=== PATIENT | female | born 1980 | race Caucasian/White ===

== ENCOUNTER 2018-07-18 22:05 | Emergency (ER) | payer OTHER ==
[~2018-07-18] VITALS: Ht 162.6 cm; Wt 113.4 kg
[2018-07-18 23:03] LABS: BASO # 0.1 x10^3/uL (0.0-0.2); BASO % 1 % (0-3); EOS # 0.2 x10^3/uL (0.0-0.7); EOS % 2 % (0-3); HEMATOCRIT 38.9 % (36.0-47.0); HEMOGLOBIN 13.4 g/dL (12.0-15.5); LYMPH # 2.6 x10^3/uL (1.0-4.8); LYMPH % 29 % (24-48); MEAN CORPUSCULAR HEMOGLOBIN 30 pg (25-35); MEAN CORPUSCULAR HGB CONC 35 g/dL (31-37); MEAN CORPUSCULAR VOLUME 87 fL (79-100); MONO # 0.7 x10^3/uL (0.0-1.1); MONO % 7 % (0-9); NEUT # 5.7 x10^3uL (1.8-7.7); NEUT % 62 % (31-73); PLATELET COUNT 319 x10^3/uL (140-400); RED BLOOD COUNT 4.48 x10^6/uL (3.50-5.40); RED CELL DISTRIBUTION WIDTH 13.6 % (11.5-14.5); WHITE BLOOD COUNT 9.2 x10^3/uL (4.0-11.0)
[2018-07-18 23:04] LABS: CREATININE 0.9 mg/dL (0.6-1.0); GFR 70.8; POTASSIUM 3.8 mmol/L (3.5-5.1)
--- NOTE | 2018-07-18 23:04 | PHYS DOC ---
Past History Past Medical History: Depression, GERD, Other Past Surgical History: Cholecystectomy Smoking: Less than 1pk/day Alcohol Use: None Drug Use: None Adult General Chief Complaint Chief Complaint: FLANK PAIN HPI HPI 37-year-old female presents with sudden onset left-sided low back pain. The patient was walking across the kitchen and went to turn and sat down piece of toast when she felt "a pop" in the left lower side of her abdomen or back. She had immediate pain with radiculopathy down the lateral portion of her leg to the knee. The pain was 8 out of 10 and sharp. She was not immediately able to move due to pain. She was able to walk afterward. It continues to be quite painful and she wants to make sure it is nothing serious. The patient has been having some minor sciatic pain left side since May that is been managed by her PCP. She is supposed to go to physical therapy, but has not started yet. Her current pain is different than this pain. She denies loss of bowel or bladder. She denies history of back surgery or trauma. She denies fever, chills, dysuria , urinary frequency, hematuria. Review of Systems Review of Systems Constitutional: Denies fever or chills [] Eyes: Denies change in visual acuity, redness, or eye pain [] HENT: Denies nasal congestion or sore throat [] Respiratory: Denies cough or shortness of breath [] Cardiovascular: No additional information not addressed in HPI [] GI: Denies abdominal pain, nausea, vomiting, bloody stools or diarrhea [] : Denies dysuria or hematuria [] Musculoskeletal: Left-sided low back pain[] Integument: Denies rash or skin lesions [] Neurologic: Denies headache, focal weakness or sensory changes [] Endocrine: Denies polyuria or polydipsia [] All other systems were reviewed and found to be within normal limits, except as documented in this note. Current Medications Current Medications Current Medications Medications (Trade) Dose Ordered Sig/Luis Start Time Stop Time Status Last Admin Dose Admin Acetaminophen/ Hydrocodone Bitart (Lortab 5/325) 1 tab 1X ONCE 07/18/18 23:15 07/18/18 23:16 Orphenadrine Citrate (Norflex) 60 mg 1X ONCE 07/18/18 23:15 07/18/18 23:16 Prednisone (Prednisone) 50 mg 1X ONCE 07/18/18 23:15 07/18/18 23:16 Allergies Allergies Allergies Coded Allergies Type Severity Reaction Last Updated Verified No Known Drug Allergies 01/05/15 No Physical Exam Physical Exam Constitutional: Well developed, well nourished, no acute distress, non-toxic appearance. [] HENT: Normocephalic, atraumatic, bilateral external ears normal, oropharynx moist, no oral exudates, nose normal. [] Eyes: PERRLA, EOMI, conjunctiva normal, no discharge. [] Neck: Normal range of motion, no tenderness, supple, no stridor. [] Cardiovascular:Heart rate regular rhythm, no murmur [] Lungs & Thorax: Bilateral breath sounds clear to auscultation [] Abdomen: Bowel sounds normal, soft, no tenderness, no masses, no pulsatile masses. [] Skin: Warm, dry, no erythema, no rash. [] Back: Paraspinal muscle tenderness in the lower lumbar. Tenderness is greatest over left sacroiliac joint. She also has some tenderness over the left ilio- tibial tract.[] Extremities: No tenderness, no cyanosis, no clubbing, ROM intact, no edema. [] Neurologic: Alert and oriented X 3, normal motor function, normal sensory function, no focal deficits noted. [] Psychologic: Affect normal, judgement normal, mood normal. [] Current Patient Data Vital Signs Vital Signs Date Time Temp Pulse Resp B/P (MAP) Pulse Ox O2 Delivery O2 Flow Rate FiO2 07/18/18 22:14 98.4 74 20 96 Room Air EKG EKG [] Radiology/Procedures Radiology/Procedures [] Impressions: LUMBAR SPINE 2-3V History: Sudden onset left side back pain. Pt states she heard a pop. Comparison: None are available Vertebral body height maintained. No significant subluxation. Mild marginal spurring. Surgical clips in the right upper quadrant. No evidence of acute fracture. IMPRESSION: No acute fracture or subluxation Electronically signed by: Natalio Nguyen MD (07/18/2018 11:59 PM) [place] [id number] DICTATED AND SIGNED BY: NATALIO NGUYEN MD DATE: 07/18/18 9980 CC: YOLI LAWSON DO; PCP,NO ~ Course & Med Decision Making Course & Med Decision Making Pertinent Labs and Imaging studies reviewed. (See chart for details) The patient's labs are unremarkable. Her x-rays unremarkable. I believe her pain is left sacroiliitis. I will treat her with 50 mg of prednisone and a [place] 5/325 in the ED followed by 3 more days of prednisone at home. Also advised regular icing of the area and resting significant amount the next few days. If her symptoms do not improve in the next couple of days she should consider physical therapy as soon as possible. She is stable for discharge at this time. [] Dragon Disclaimer Dragon Disclaimer This electronic medical record was generated, in whole or in part, using a voice recognition dictation system. Departure Departure: Referrals: PCP,NO (PCP) YOLI LAWSON DO Jul 18, 2018 23:04
[2018-07-18] MEDS ORDERED: predniSONE 20 MG TABLET PO ONE (23:15)
[2018-07-18] MEDS ORDERED: HYDROcodone/APAP 5/325MG 1 TAB TABLET PO ONE (23:15)
[2018-07-18] MEDS ORDERED: ORPHENADRINE CITRATE 60 MG/2 ML VIAL. IM ONE (23:15)
--- NOTE | 2018-07-19 00:03 | RAD ---
LUMBAR SPINE 2-3V History: Sudden onset left side back pain. Pt states she heard a pop. Comparison: None are available Vertebral body height maintained. No significant subluxation. Mild marginal spurring. Surgical clips in the right upper quadrant. No evidence of acute fracture. IMPRESSION: No acute fracture or subluxation Electronically signed by: Natalio Nguyen MD (07/18/2018 11:59 PM) [facility] [email or web address]
[2018-07-19] MEDS ORDERED: PRED50TA PO (00:43)
[2018-07-19] MEDS ORDERED: HYDR-971 PO (00:43)
[2018-07-19] MEDS ORDERED: CYCL-331 PO (00:43)
[2018-07-19 01:15] VITALS: BP 136/74
== END 2018-07-19 01:11 | disposition home or self-care (01) ==
LOC: ER 22:05
DX: M54.42 Lumbago with sciatica, left side (principal); G89.11 Acute pain due to trauma; M53.3 Sacrococcygeal disorders, not elsewhere classified; K21.9 Gastro-esophageal reflux disease without esophagitis; F17.200 Nicotine dependence, unspecified, uncomplicated; Z90.49 Acquired absence of other specified parts of digestive tract; X50.0XXA Overexertion from strenuous movement or load, initial encounter; Y93.01 Activity, walking, marching and hiking; Y92.090 Kitchen in other non-institutional residence as the place of occurrence of the external cause; Y99.8 Other external cause status
CPT/HCPCS: 36415; 72100; 80048; 85025; 96372; 99285; J2360; J7512

== ENCOUNTER 2018-08-09 19:16 | Emergency (ER) | payer OTHER ==
[~2018-08-09] VITALS: Ht 165.1 cm; Wt 113.4 kg
[~2018-08-09 19:16] MED LIST: CYCL-331 PO; HYDR-971 PO; PRED50TA PO
--- NOTE | 2018-08-09 19:54 | PHYS DOC ---
Past History Past Medical History: Other Past Surgical History: Cholecystectomy, Tubal ligation, Other Smoking: Less than 1pk/day Alcohol Use: None Drug Use: None Adult General Chief Complaint Chief Complaint: LOWER EXT PAIN HPI HPI 37 showed female presents with left lower leg pain for 3 days. The patient was seen in this ED and treated for sacroiliitis recently. She states that the steroid treatment improved her pain significantly and she was getting back to her normal activities. 3 days ago, while she was walking around at the grocery store she began to have a shooting pain in her left lower extremity only from the knee down. The pain is in the posterior aspect of her leg. Since that time, she has had intermittent shooting pain and a tingling sensation in that lower leg. She denies long car or plane rides. She has not had a DVT in the past. She is not on control. She is no longer a smoker. Denies recent trauma or injury. She is able to walk, but the pain tends to increase if she walks for an extended period of time. Rest partially relieves the pain, but she does still get shooting pain episodes at rest. She denies fever or chills. Review of Systems Review of Systems Constitutional: Denies fever or chills [] Eyes: Denies change in visual acuity, redness, or eye pain [] HENT: Denies nasal congestion or sore throat [] Respiratory: Denies cough or shortness of breath [] Cardiovascular: No additional information not addressed in HPI [] GI: Denies abdominal pain, nausea, vomiting, bloody stools or diarrhea [] : Denies dysuria or hematuria [] Musculoskeletal: Left lower leg pain[] Integument: Denies rash or skin lesions [] Neurologic: Denies headache, focal weakness or sensory changes [] Endocrine: Denies polyuria or polydipsia [] All other systems were reviewed and found to be within normal limits, except as documented in this note. Allergies Allergies Allergies Coded Allergies Type Severity Reaction Last Updated Verified No Known Drug Allergies 07/18/18 No Physical Exam Physical Exam Constitutional: Well developed, well nourished, no acute distress, non-toxic appearance. [] HENT: Normocephalic, atraumatic, bilateral external ears normal, oropharynx moist, no oral exudates, nose normal. [] Eyes: PERRLA, EOMI, conjunctiva normal, no discharge. [] Neck: Normal range of motion, no tenderness, supple, no stridor. [] Cardiovascular:Heart rate regular rhythm, no murmur [] Lungs & Thorax: Bilateral breath sounds clear to auscultation [] Abdomen: Bowel sounds normal, soft, no tenderness, no masses, no pulsatile masses. [] Skin: Warm, dry, no erythema, no rash. [] Back: No tenderness, no CVA tenderness. [] Extremities: No tenderness, no cyanosis, no clubbing, ROM intact, no edema. Bilateral calves grossly same size. Tenderness to palpation of the posterior left knee. Some tenderness over the Achilles tendon distribution.[] Neurologic: Alert and oriented X 3, normal motor function, normal sensory function, no focal deficits noted. [] Psychologic: Affect normal, judgement normal, mood normal. [] Current Patient Data Vital Signs Vital Signs Date Time Temp Pulse Resp B/P (MAP) Pulse Ox O2 Delivery O2 Flow Rate FiO2 08/09/18 19:21 98.8 61 18 100 Room Air EKG EKG [] Radiology/Procedures Radiology/Procedures [] Impressions: Ultrasound venous Doppler INDICATION:LT KNEE CALF PAIN NO KNOWN INJURY TECHNIQUE: Grayscale, color Doppler and spectral waveform ultrasound images of the left lower extremities deep veins obtained. COMPARISON: None FINDINGS: The interrogated deep veins are compressible and demonstrate evidence of blood flow with normal respiratory variation and response to augmentation. IMPRESSION: No sonographic evidence of acute DVT of the left lower extremity deep veins. Electronically signed by: Urban Brock DO (08/09/2018 9:38 PM) [facility] DICTATED AND SIGNED BY: URBAN BROCK DO DATE: 08/09/182137 CC: YOLI LAWSON DO; NON,STAFF ~ Course & Med Decision Making Course & Med Decision Making Pertinent Labs and Imaging studies reviewed. (See chart for details) Patient's ultrasound is negative for DVT or other significant finding. I'm unsure exactly why the patient is having the pain that she is having. I will give her a short course of 10. Code 5/325 and advised that she follow-up with her PCP if it does not improve in the next couple of days. [] Dragon Disclaimer Dragon Disclaimer This electronic medical record was generated, in whole or in part, using a voice recognition dictation system. Departure Departure: Referrals: NON,STAFF (PCP) Scripts Hydrocodone Bit/Acetaminophen ([place]CO 5-325 TABLET) 1 Each Tablet 1 TAB PO PRN Q6HRS PRN for PAIN, #10 TAB 0 Refills Prov: YOLI LAWSON DO 08/09/18 YOLI LAWSON DO Aug 09, 2018 19:54
[2018-08-09] MEDS ORDERED: KETOROLAC 30 MG/ML VIAL. IM ONE (20:45)
--- NOTE | 2018-08-09 21:42 | RAD ---
Ultrasound venous Doppler INDICATION:LT KNEE CALF PAIN NO KNOWN INJURY TECHNIQUE: Grayscale, color Doppler and spectral waveform ultrasound images of the left lower extremities deep veins obtained. COMPARISON: None FINDINGS: The interrogated deep veins are compressible and demonstrate evidence of blood flow with normal respiratory variation and response to augmentation. IMPRESSION: No sonographic evidence of acute DVT of the left lower extremity deep veins. Electronically signed by: Urban Hartmann DO (08/09/2018 9:38 PM) [facility]
[2018-08-09] MEDS ORDERED: HYDROcodone/APAP 5/325MG 1 TAB TABLET PO ONE (21:45)
[2018-08-09] MEDS ORDERED: HYDR-971 PO (22:03)
[2018-08-09 22:13] VITALS: BP 146/98
== END 2018-08-09 22:20 | disposition home or self-care (01) ==
LOC: ER 19:16
DX: M79.662 Pain in left lower leg (principal); R20.2 Paresthesia of skin; M25.562 Pain in left knee; F17.200 Nicotine dependence, unspecified, uncomplicated
CPT/HCPCS: 93971; 96372; 99284; J1885

== ENCOUNTER 2019-06-04 19:36 | Emergency (ER) | payer OTHER ==
[~2019-06-04] VITALS: Ht 160 cm; Wt 142.9 kg
[~2019-06-04 19:36] MED LIST changes: +HYDR-3165 PO; -HYDR-971 PO
--- NOTE | 2019-06-04 19:44 | ED.ADGEN ---
Past History Past Medical History: UTI, Other Past Surgical History: Cholecystectomy, Tubal ligation, Other Smoking: Less than 1pk/day Alcohol Use: None Drug Use: None Adult General Chief Complaint Chief Complaint ".. I am having really bad abdomen and Lt. flank pain... " HPI HPI Patient is a 38 year old female who presents with above hx and complaints of a gastric, left abdomen and left flank back pain for past 6 days. Pt. rates her p ain as 7-8/10. Nothing make it better. Patient denies any history of trauma. Patient denies any past history kidney stones. Patient denies any history of colitis or inflammatory bowel disorder. Pain is localized in left flank radiates to her lower abdomen. No vaginal discharge. No dark or tarry stools. Has not had a colonoscopy in the past. Has had urinary tract infections in the past. Review of Systems Review of Systems Constitutional: Denies fever or chills [] Eyes: Denies change in visual acuity, redness, or eye pain [] HENT: Denies nasal congestion or sore throat [] Respiratory: Denies cough or shortness of breath [] Cardiovascular: No additional information not addressed in HPI [] GI: Complains of left sided abdominal pain and left flank pain., nausea, . Denies vomiting, bloody stools or diarrhea [] : Denies dysuria or hematuria [] Musculoskeletal: Denies back pain or joint pain [] Integument: Denies rash or skin lesions [] Neurologic: Denies headache, focal weakness or sensory changes [] Endocrine: Denies polyuria or polydipsia [] All other systems were reviewed and found to be within normal limits, except as documented in this note. Family History Family History Noncontributory to her presentation Current Medications Current Medications Current Medications Medications (Trade) Dose Ordered Sig/Luis Start Time Stop Time Status Last Admin Dose Admin Ceftriaxone Sodium 1 gm/ Sodium Chloride 50 ml @ 100 mls/hr 1X ONCE 06/04/19 21:00 06/04/19 21:29 DC 06/04/19 21:06 100 MLS/HR Ceftriaxone Sodium (Rocephin) 1 gm STK-MED ONCE 06/04/19 21:02 06/04/19 21:03 DC Famotidine (Pepcid Vial) 20 mg 1X ONCE 06/04/19 20:30 06/04/19 20:31 DC 06/04/19 21:07 20 MG Iohexol (Omnipaque 240 Mg/ml) 30 ml 1X ONCE 06/04/19 21:15 06/04/19 21:16 DC 06/04/19 22:12 30 ML Iohexol (Omnipaque 300 Mg/ml) 75 ml 1X ONCE 06/04/19 21:15 06/04/19 21:16 DC 06/04/19 22:12 75 ML Ketorolac Tromethamine (Toradol 30mg Vial) 30 mg 1X ONCE 06/04/19 20:30 06/04/19 20:31 DC 06/04/19 21:07 30 MG Lactated Ringer's 1,000 ml @ 1,000 mls/hr Q1H 06/04/19 20:30 06/04/19 21:29 DC 06/04/19 21:06 1,000 MLS/HR Magnesium Hydroxide (Milk Of Magnesia) 2,400 mg 1X ONCE 06/04/19 20:30 06/04/19 20:31 DC Morphine Sulfate (Morphine 10mg Syringe) 10 mg 1X ONCE 06/04/19 21:45 06/04/19 21:46 DC 06/04/19 21:46 10 MG Ondansetron HCl (Zofran) 8 mg 1X ONCE 06/04/19 20:30 06/04/19 20:31 DC 06/04/19 21:06 8 MG Sodium Chloride 50 ml @ As Directed STK-MED ONCE 06/04/19 21:02 06/04/19 21:03 DC Allergies Allergies Allergies Coded Allergies Type Severity Reaction Last Updated Verified No Known Drug Allergies 07/18/18 No Physical Exam Physical Exam Constitutional: Moderately acute distress, non-toxic appearance. [] HENT: Normocephalic, atraumatic, bilateral external ears normal, oropharynx moist, no oral exudates, nose normal. [] Eyes: PERRLA, EOMI, conjunctiva normal, no discharge. [] Neck: Normal range of motion, no tenderness, supple, no stridor. [] Cardiovascular:Heart rate regular rhythm, no murmur [] Lungs & Thorax: Bilateral breath sounds clear to auscultation [] Abdomen: Bowel sounds normal, soft, left-sided tenderness, no masses, no pulsatile masses. [] Obese. Distended. Old surgery scars Skin: Warm, dry, no erythema, no rash. [] Back: No tenderness, left CVA tenderness. [] Extremities: No tenderness, no cyanosis, no clubbing, ROM intact, ankle edema. [ ] Neurologic: Alert and oriented X 3, normal motor function, normal sensory function, no focal deficits noted. [] Psychologic: Affect anxious, judgement normal, mood normal. [] Current Patient Data Vital Signs Vital Signs Date Time Temp Pulse Resp B/P (MAP) Pulse Ox O2 Delivery O2 Flow Rate FiO2 06/04/19 22:14 90 20 146/78 (100) 99 Room Air 06/04/19 19:57 99.0 Lab Results Laboratory Tests Test 06/04/19 19:45 06/04/19 20:05 06/04/19 20:35 Urine Collection Type Unknown Urine Color Yellow Urine Clarity Cloudy Urine pH 7.0 Urine Specific [place] 1.015 Urine Protein Neg (NEG-TRACE) Urine Glucose (UA) Neg mg/dL (NEG) Urine Ketones (Stick) Neg mg/dL (NEG) Urine Blood Neg (NEG) Urine Nitrite Neg (NEG) Urine Bilirubin Neg (NEG) Urine Urobilinogen Dipstick 0.2 mg/dL (0.2 mg/dL) Urine Leukocyte Esterase Trace (NEG) Urine RBC 0 /HPF (0-2) Urine WBC 0 /HPF (0-4) Urine Squamous Epithelial Cells Occ /LPF Urine Bacteria Few /HPF (0-FEW) Urine Opiates Screen Neg (NEG) Urine Methadone Screen Neg (NEG) Urine Barbiturates Neg (NEG) Urine Phencyclidine Screen Neg (NEG) Urine Amphetamine/Methamphetamine Neg (NEG) Urine Benzodiazepines Screen Neg (NEG) Urine Cocaine Screen Neg (NEG) Urine Cannabinoids Screen Neg (NEG) Urine Ethyl Alcohol Neg (NEG) POC Urine HCG, Qualitative hcg negative (Negative) White Blood Count 8.0 x10^3/uL (4.0-11.0) Red Blood Count 4.75 x10^6/uL (3.50-5.40) Hemoglobin 13.9 g/dL (12.0-15.5) Hematocrit 41.4 % (36.0-47.0) Mean Corpuscular Volume 87 fL (79-100) Mean Corpuscular Hemoglobin 29 pg (25-35) Mean Corpuscular Hemoglobin Concent 34 g/dL (31-37) Red Cell Distribution Width 14.1 % (11.5-14.5) Platelet Count 371 x10^3/uL (140-400) Neutrophils (%) (Auto) 58 % (31-73) Lymphocytes (%) (Auto) 30 % (24-48) Monocytes (%) (Auto) 9 % (0-9) Eosinophils (%) (Auto) 3 % (0-3) Basophils (%) (Auto) 0 % (0-3) Neutrophils # (Auto) 4.7 x10^3uL (1.8-7.7) Lymphocytes # (Auto) 2.4 x10^3/uL (1.0-4.8) Monocytes # (Auto) 0.7 x10^3/uL (0.0-1.1) Eosinophils # (Auto) 0.2 x10^3/uL (0.0-0.7) Basophils # (Auto) 0.0 x10^3/uL (0.0-0.2) Prothrombin Time 9.7 SEC (9.4-11.4) Prothrombin Time INR 0.9 (0.9-1.1) PTT 25 SEC (23-33) Sodium Level 138 mmol/L (136-145) Potassium Level 4.1 mmol/L (3.5-5.1) Chloride Level 103 mmol/L (98-107) Carbon Dioxide Level 27 mmol/L (21-32) Anion Gap 8 (6-14) Blood Urea Nitrogen 9 mg/dL (7-20) Creatinine 1.0 mg/dL (0.6-1.0) Estimated GFR (Cockcroft-Gault) 62.4 Glucose Level 91 mg/dL (70-99) Calcium Level 9.8 mg/dL (8.5-10.1) Total Bilirubin 0.3 mg/dL (0.2-1.0) Direct Bilirubin 0.1 mg/dL (0.0-0.2) Aspartate Amino Transferase (AST) 33 U/L (15-37) Alanine Aminotransferase (ALT) 47 U/L (14-59) Alkaline Phosphatase 85 U/L (46-116) Troponin I Quantitative < 0.017 ng/mL (0-0.055) Total Protein 6.5 g/dL (6.4-8.2) Albumin 3.5 g/dL (3.4-5.0) Lipase 193 U/L (73-393) EKG EKG My interpretation EKG shows sinus rhythm at 88 bpm. There is a inferior block. But no findings acute STEMI of contralateral changes.[] Radiology/Procedures Radiology/Procedures [][address] [id number] IMAGING REPORT Signed PATIENT: CAMERON MELENDEZ ACCOUNT: [id number] : 1980 LOCATION: ER AGE: 38 SEX: F EXAM STATUS: REG ER ORD. PHYSICIAN: JAIME BARAJAS MD REASON: Abdomen pain, nausea, vomiting PROCEDURE: ACUTE ABDOMEN SERIES ACUTE ABDOMEN SERIES History: Abdominal pain, nausea and vomiting Comparison: None. Findings: Single view of the chest, single upright view of the abdomen, and 2 supine AP views of abdomen are submitted. There is no lobar consolidation, pleural fluid, pneumothorax. There has been cholecystectomy. No free air is identified. No gas dilated bowel is identified. There is retained stool greater of the right colon. Impression: 1. There is retained stool greater of the right colon. Electronically signed by: Michael Garza MD (06/04/2019 9:08 PM) [facility] DICTATED AND SIGNED BY: MICHAEL GARZA MD DATE: 06/04/192107 CC: JAIME BARAJAS MD; NON,STAFF ~ Course & Med Decision Making Course & Med Decision Making Pertinent Labs and Imaging studies reviewed. (See chart for details) Clear fluid diet only x 2 days. Push fluids and vitamin C drinks. Take Bactrim DS twice a day for UTI. Follow up with primary and [employer]. Return if any concerns. Tylenol and Ibuprofen for pain. Marked pain take Vicoprofen. [] Final Impression Final Impression 1. Abdomen pain 2. Constipation[] 3. UTI 4. Ovarian Cyst. Dragon Disclaimer Dragon Disclaimer This electronic medical record was generated, in whole or in part, using a voice recognition dictation system. Discharge Summary Visit Information Final Diagnosis Problems Medical Problems: (1) Ovarian cyst Status: Acute (2) Urinary tract bacterial infections Status: Acute Brief Hospital Course Allergies Allergies Coded Allergies Type Severity Reaction Last Updated Verified No Known Drug Allergies 07/18/18 No Vital Signs Vital Signs Date Time Temp Pulse Resp B/P (MAP) Pulse Ox O2 Delivery O2 Flow Rate FiO2 06/04/19 22:14 90 20 146/78 (100) 99 Room Air 06/04/19 19:57 99.0 Lab Results Laboratory Tests Test 06/04/19 19:45 06/04/19 20:05 06/04/19 20:35 Urine Collection Type Unknown Urine Color Yellow Urine Clarity Cloudy Urine pH 7.0 Urine Specific [place] 1.015 Urine Protein Neg (NEG-TRACE) Urine Glucose (UA) Neg mg/dL (NEG) Urine Ketones (Stick) Neg mg/dL (NEG) Urine Blood Neg (NEG) Urine Nitrite Neg (NEG) Urine Bilirubin Neg (NEG) Urine Urobilinogen Dipstick 0.2 mg/dL (0.2 mg/dL) Urine Leukocyte Esterase Trace (NEG) Urine RBC 0 /HPF (0-2) Urine WBC 0 /HPF (0-4) Urine Squamous Epithelial Cells Occ /LPF Urine Bacteria Few /HPF (0-FEW) Urine Opiates Screen Neg (NEG) Urine Methadone Screen Neg (NEG) Urine Barbiturates Neg (NEG) Urine Phencyclidine Screen Neg (NEG) Urine Amphetamine/Methamphetamine Neg (NEG) Urine Benzodiazepines Screen Neg (NEG) Urine Cocaine Screen Neg (NEG) Urine Cannabinoids Screen Neg (NEG) Urine Ethyl Alcohol Neg (NEG) Bedside Urine HCG, Qualitative hcg negative (Negative) White Blood Count 8.0 x10^3/uL (4.0-11.0) Red Blood Count 4.75 x10^6/uL (3.50-5.40) Hemoglobin 13.9 g/dL (12.0-15.5) Hematocrit 41.4 % (36.0-47.0) Mean Corpuscular Volume 87 fL (79-100) Mean Corpuscular Hemoglobin 29 pg (25-35) Mean Corpuscular Hemoglobin Concent 34 g/dL (31-37) Red Cell Distribution Width 14.1 % (11.5-14.5) Platelet Count 371 x10^3/uL (140-400) Neutrophils (%) (Auto) 58 % (31-73) Lymphocytes (%) (Auto) 30 % (24-48) Monocytes (%) (Auto) 9 % (0-9) Eosinophils (%) (Auto) 3 % (0-3) Basophils (%) (Auto) 0 % (0-3) Neutrophils # (Auto) 4.7 x10^3uL (1.8-7.7) Lymphocytes # (Auto) 2.4 x10^3/uL (1.0-4.8) Monocytes # (Auto) 0.7 x10^3/uL (0.0-1.1) Eosinophils # (Auto) 0.2 x10^3/uL (0.0-0.7) Basophils # (Auto) 0.0 x10^3/uL (0.0-0.2) Prothrombin Time 9.7 SEC (9.4-11.4) Prothromb Time International Ratio 0.9 (0.9-1.1) Activated Partial Thromboplast Time 25 SEC (23-33) Sodium Level 138 mmol/L (136-145) Potassium Level 4.1 mmol/L (3.5-5.1) Chloride Level 103 mmol/L (98-107) Carbon Dioxide Level 27 mmol/L (21-32) Anion Gap 8 (6-14) Blood Urea Nitrogen 9 mg/dL (7-20) Creatinine 1.0 mg/dL (0.6-1.0) Estimated GFR (Cockcroft-Gault) 62.4 Glucose Level 91 mg/dL (70-99) Calcium Level 9.8 mg/dL (8.5-10.1) Total Bilirubin 0.3 mg/dL (0.2-1.0) Direct Bilirubin 0.1 mg/dL (0.0-0.2) Aspartate Amino Transf (AST/SGOT) 33 U/L (15-37) Alanine Aminotransferase (ALT/SGPT) 47 U/L (14-59) Alkaline Phosphatase 85 U/L (46-116) Troponin I Quantitative < 0.017 ng/mL (0-0.055) Total Protein 6.5 g/dL (6.4-8.2) Albumin 3.5 g/dL (3.4-5.0) Lipase 193 U/L (73-393) Brief Hospital Course Ms. Melendez is a 38 old female who presented with UTI and Ovarian Cyst. Discharge Information Condition at Discharge: Improved, Stable Disposition/Orders: D/C to Home Dischare Medications Current Medications Lactated Ringer's 1,000 ml @ 1,000 mls/hr Q1H IV Last administered on 06/04/19at 21:06; Admin Dose 1,000 MLS/HR; Start 06/04/19 at 20:30; Stop 06/04/19 at 21:29; Status DC Ondansetron HCl (Zofran) 8 mg 1X ONCE IV Last administered on 06/04/19at 21:06; Admin Dose 8 MG; Start 06/04/19 at 20:30; Stop 06/04/19 at 20:31; Status DC Famotidine (Pepcid Vial) 20 mg 1X ONCE IVP Last administered on 06/04/19at 21:07; Admin Dose 20 MG; Start 06/04/19 at 20:30; Stop 06/04/19 at 20:31; Status DC Ketorolac Tromethamine (Toradol 30mg Vial) 30 mg 1X ONCE IV Last administered on 06/04/19at 21:07; Admin Dose 30 MG; Start 06/04/19 at 20:30; Stop 06/04/19 at 20:31; Status DC Magnesium Hydroxide (Milk Of Magnesia) 2,400 mg 1X ONCE PO ; Start 06/04/19 at 2 0:30; Stop 06/04/19 at 20:31; Status DC Ceftriaxone Sodium 1 gm/ Sodium Chloride 50 ml @ 100 mls/hr 1X ONCE IV Last administered on 06/04/19at 21:06; Admin Dose 100 MLS/HR; Start 06/04/19 at 21:00; Stop 06/04/19 at 21:29; Status DC Sodium Chloride 50 ml @ As Directed STK-MED ONCE .ROUTE ; Start 06/04/19 at 21:02; Stop 06/04/19 at 21:03; Status DC Ceftriaxone Sodium (Rocephin) 1 gm STK-MED ONCE .ROUTE ; Start 06/04/19 at 21:02; Stop 06/04/19 at 21:03; Status DC Iohexol (Omnipaque 240 Mg/ml) 30 ml 1X ONCE PO Last administered on 06/04/19at 22:12; Admin Dose 30 ML; Start 06/04/19 at 21:15; Stop 06/04/19 at 21:16; Status DC Iohexol (Omnipaque 300 Mg/ml) 75 ml 1X ONCE IV Last administered on 06/04/19at 22:12; Admin Dose 75 ML; Start 06/04/19 at 21:15; Stop 06/04/19 at 21:16; Status DC Morphine Sulfate (Morphine 10mg Syringe) 10 mg 1X ONCE SQ Last administered on 06/04/19at 21:46; Admin Dose 10 MG; Start 06/04/19 at 21:45; Stop 06/04/19 at 21:46; Status DC Active Scripts Active Bactrim Ds Tablet (Sulfamethoxazole/Trimethoprim) 1 Each Tablet 1 Tab PO BID Zofran (Ondansetron Hcl) 8 Mg Tablet 8 Mg PO QIDPRN PRN Hydrocodone-Ibuprofen 7.5-200 (Hydrocodone/Ibuprofen) 1 Each Tablet 1 Tab PO PRN Q6HRS PRN [place] 5-325 Tablet (Hydrocodone Bit/Acetaminophen) 1 Each Tablet 1 Tab PO PRN Q6HRS PRN Cyclobenzaprine Hcl 10 Mg Tablet 1 Tab PO TID [place] 5-325 Tablet (Hydrocodone Bit/Acetaminophen) 1 Each Tablet 1 Tab PO PRN Q6HRS PRN Prednisone 50 Mg Tablet 1 Tab PO DAILY 3 Days Alex Disclaimer This chart was dictated in whole or in part using Voice Recognition software in a busy, high-work load, and often noisy Emergency Department environment. It may contain unintended and wholly unrecognized errors or omissions. JAIME BARAJAS MD Jun 04, 2019 19:44
[2019-06-04 20:14] LABS: BARBITURATES NEG (NEG); BENZODIAZEPINES NEG (NEG); CANNABINOIDS NEG (NEG); COCAINE NEG (NEG); METHADONE NEG (NEG); OPIATES NEG (NEG); PHENCYCLIDINE NEG (NEG)
[2019-06-04 20:15] LABS: AMPHETAMINE/METHAMPHETAMINE NEG (NEG)
[2019-06-04 20:16] LABS: BACTERIA,URINE FEW /HPF (0-FEW); BILIRUBIN,URINE NEG (NEG); CLARITY,URINE CLOUDY; COLOR,URINE YELLOW; GLUCOSE,URINE NEG (NEG); NITRITE,URINE NEG (NEG); RBC,URINE 0 /HPF (0-2); SQUAMOUS EPITHELIAL CELL,UR OCC /LPF; UROBILINOGEN,URINE 0.2 mg/dL (0.2 mg/dL); WBC,URINE 0 /HPF (0-4)
[2019-06-04] MEDS ORDERED: ONDANSETRON PF 4 MG/2 ML VIAL. IV ONE (20:30)
[2019-06-04] MEDS ORDERED: IV RINGERS SOLUTION,LACTATED 1,000 ML IV SCH (20:30)
[2019-06-04] MEDS ORDERED: KETOROLAC 30 MG/ML VIAL. IV ONE (20:30)
[2019-06-04] MEDS ORDERED: FAMOTIDINE 20 MG/2 ML VIAL IVP ONE (20:30)
[2019-06-04] MEDS ORDERED: MAGNESIUM HYDROXIDE 2,400 MG/30 ML ORAL.SUSP. PO ONE (20:30)
[2019-06-04 21:00] LABS: BASO % 0 % (0-3); EOS # 0.2 x10^3/uL (0.0-0.7); EOS % 3 % (0-3); HEMATOCRIT 41.4 % (36.0-47.0); HEMOGLOBIN 13.9 g/dL (12.0-15.5); LYMPH # 2.4 x10^3/uL (1.0-4.8); LYMPH % 30 % (24-48); MEAN CORPUSCULAR HEMOGLOBIN 29 pg (25-35); MEAN CORPUSCULAR HGB CONC 34 g/dL (31-37); MEAN CORPUSCULAR VOLUME 87 fL (79-100); MONO # 0.7 x10^3/uL (0.0-1.1); MONO % 9 % (0-9); NEUT # 4.7 x10^3uL (1.8-7.7); NEUT % 58 % (31-73); PLATELET COUNT 371 x10^3/uL (140-400); RED BLOOD COUNT 4.75 x10^6/uL (3.50-5.40); RED CELL DISTRIBUTION WIDTH 14.1 % (11.5-14.5)
[2019-06-04] MEDS ORDERED: cefTRIAXone SODIUM 1 GM VIAL ONE (21:02)
[2019-06-04] MEDS ORDERED: IV NORMAL SALINE 50ML 50 ML ONE (21:02)
--- NOTE | 2019-06-04 21:11 | RAD ---
ACUTE ABDOMEN SERIES History: Abdominal pain, nausea and vomiting Comparison: None. Findings: Single view of the chest, single upright view of the abdomen, and 2 supine AP views of abdomen are submitted. There is no lobar consolidation, pleural fluid, pneumothorax. There has been cholecystectomy. No free air is identified. No gas dilated bowel is identified. There is retained stool greater of the right colon. Impression: 1. There is retained stool greater of the right colon. Electronically signed by: Omid Garza MD (06/04/2019 9:08 PM) [facility]
[2019-06-04] MEDS ORDERED: IOHEXOL 300 MG/ML 75 ML VIAL. IV ONE (21:15)
[2019-06-04] MEDS ORDERED: IOHEXOL 240 MG/ML 50ML VIAL. PO ONE (21:15)
[2019-06-04 21:25] LABS: ALBUMIN 3.5 g/dL (3.4-5.0); CALCIUM 9.8 mg/dL (8.5-10.1); DIRECT BILIRUBIN 0.1 mg/dL (0.0-0.2); GFR 62.4; POTASSIUM 4.1 mmol/L (3.5-5.1); TOTAL BILIRUBIN 0.3 mg/dL (0.2-1.0); TOTAL PROTEIN 6.5 g/dL (6.4-8.2)
[2019-06-04] MEDS ORDERED: MORPHINE SULFATE 10 MG/ML SYRINGE. SQ ONE (21:45)
[2019-06-04 22:14] VITALS: BP 146/78
--- NOTE | 2019-06-04 22:40 | RAD ---
CT scan of the abdomen and pelvis with contrast 06/04/2019 CLINICAL HISTORY: Left-sided abdominal pain with nausea and vomiting. TECHNIQUE: After the intravenous administration of 75 cc of Omnipaque 350 and the oral administration of contrast, contiguous, 5 mm axial sections were obtained through the abdomen and pelvis. FINDINGS: Comparison study is dated 01/05/2015. Images through the lung bases demonstrate subsegmental atelectasis involving both lower lobes. A 3 mm calcified granuloma is seen involving the left lower lobe. The liver, spleen, pancreas, adrenal glands and kidneys are within normal limits. The abdominal aorta tapers normally. Surgical clips are seen within the gallbladder fossa consistent with a cholecystectomy. No free fluid or free air is seen within the abdomen. There is no evidence of bowel obstruction. The appendix is well-visualized and is within normal limits. Images through the pelvis demonstrate the urinary bladder distended with urine. A 3.7 cm rounded low-attenuation lesion is seen involving the left ovary. This likely represents a left ovarian cyst. No free fluid is seen. Minimal S-shaped curvature of the thoracolumbar spine is noted. Degenerative changes are seen involving the lower lumbar spine and both hips. IMPRESSION: 3.7 cm probable left ovarian cyst. Electronically signed by: Jesse Sanchez MD (06/04/2019 10:37 PM) [facility]
[2019-06-04] MEDS ORDERED: ONDA8TAB9 PO (23:02)
[2019-06-04] MEDS ORDERED: HYDR-1179 PO (23:02)
[2019-06-04] MEDS ORDERED: SULF1TAB24 PO (23:02)
== END 2019-06-04 23:10 | disposition home or self-care (01) ==
LOC: ER 19:36
DX: N39.0 Urinary tract infection, site not specified (principal); B97.89 Other viral agents as the cause of diseases classified elsewhere; N83.202 Unspecified ovarian cyst, left side; K59.00 Constipation, unspecified; Z87.440 Personal history of urinary (tract) infections; Z90.49 Acquired absence of other specified parts of digestive tract; Z98.51 Tubal ligation status; F17.200 Nicotine dependence, unspecified, uncomplicated; Z79.899 Other long term (current) drug therapy
CPT/HCPCS: 36415; 74022; 74177; 80048; 80076; 80307; 81001; 81025; 83690; 84484; 85025; 85610; 85730; 87086; 96372; 96374; 96375; 99285; J0696; J1885; J2270; J2405; J3490; J7120; Q9966; Q9967; 93005

== ENCOUNTER 2020-03-24 17:14 | Emergency (ER) | payer OTHER ==
[~2020-03-24] VITALS: Ht 160 cm; Wt 130.9 kg
[~2020-03-24 17:14] MED LIST changes: +HYDR-1179 PO; +ONDA8TAB9 PO; +SULF1TAB24 PO
--- NOTE | 2020-03-24 18:11 | PHYS DOC ---
Past History Past Medical History: Anxiety, Bronchitis, Fibromyalgia, GERD, UTI, Other Past Surgical History: Cholecystectomy, Tubal ligation, Other Smoking: Less than 1pk/day Alcohol Use: None Drug Use: None General Adult EDM: Chief Complaint: ABDOMINAL PAIN HPI: HPI: ".. I ve been sick for two weeks.. nausea... diarrhea.. generalized abd. discomfort..... I did take some pain pills ... that I had .. i..."... " I ve had eight loose stools today...." Patient is a 39 year old female who presents with above hx and complaints generalized abdomen discomfort with repeat episodes of diarrhea. Patient denies any intake of bad food. Patient denies any travel outside [facility]. Patient denies any specific ill contacts. Patient denies any history of immunosuppression. Patient has a history of GERD, fibromyalgia, anxiety, morbid obesity and chronic pain. Patient has been eating food. Is on city water. No exposure to animals such as chickens, birds , reptiles, amphibians etc. patient does smoke cigarettes. Review of Systems: Review of Systems: Constitutional: Denies fever or chills Eyes: Denies change in visual acuity HENT: Denies nasal congestion or sore throat Respiratory: Denies cough or shortness of breath Cardiovascular: Denies chest pain or edema GI: Complains of generalized abdominal pain, nausea, and diarrhea : Denies dysuria Musculoskeletal: Denies back pain or joint pain Integument: Denies rash Neurologic: Denies headache, focal weakness or sensory changes Endocrine: Denies polyuria or polydipsia Lymphatic: Denies swollen glands Psychiatric: Denies depression or anxiety Heart Score: Risk Factors: Risk Factors: DM, Current or recent (<one month) smoker, HTN, HLP, family history of CAD, obesity. Risk Scores: Score 0 - 3: 2.5% MACE over next 6 weeks - Discharge Home Score 4 - 6: 20.3% MACE over next 6 weeks - Admit for Clinical Observation Score 7 - 10: 72.7% MACE over next 6 weeks - Early Invasive Strategies Family History: Family History: Noncontributory Current Medications: Current Meds: See nursing for home medications Allergies: Allergies: Allergies Coded Allergies Type Severity Reaction Last Updated Verified No Known Drug Allergies 07/18/18 No Physical Exam: PE: Constitutional: Moderate acute distress, non-toxic appearance. [] HENT: Normocephalic, atraumatic, bilateral external ears normal, oropharynx moist, no oral exudates, nose normal. [] Eyes: PERRLA, EOMI, conjunctiva normal, no discharge. [] Neck: Normal range of motion, no tenderness, supple, no stridor. [] Cardiovascular:Heart rate regular rhythm, no murmur [] Lungs & Thorax: Bilateral breath sounds equal apex on o auscultation [] few scattered wheezes Abdomen: Bowel sounds hyperactive l, soft, mild generalized tenderness, no masses, no pulsatile masses. [] Old surgery scars cholecystectomy and tubal. No focal areas of rebound. Distended and tympanic. Skin: Warm, dry, no erythema, no rash. [] Back: Mild lower lumbar sacral bilateral tenderness, no CVA tenderness. [] Extremities: No tenderness, no cyanosis, no clubbing, ROM intact, no edema. [] No psoas sign Neurologic: Alert and oriented X 3, normal motor function, normal sensory function, no focal deficits noted. [] Psychologic: Affect anxious , judgement normal, mood normal. [] EKG: EKG: [] Radiology/Procedures: Radiology/Procedures: [][place] [address] IMAGING REPORT Signed PATIENT: CAMERON BINGHAM AACCOUNT: [id number] : 1980 LOCATION: ER AGE: 39 SEX: F EXAM STATUS: REG ER ORD. PHYSICIAN: JAIME BARAJAS MD REASON: pain, PROCEDURE: ACUTE ABDOMEN SERIES Acute Abdominal Series: 03/24/2020 7:48 PM Reason for study: Pain. Comparison studies: None. Technique: Frontal view of the chest was obtained along with supine and upright views of the abdomen. Findings: Nonobstructive bowel gas pattern. No air fluid levels or free air. No dilated loops of small or large bowel. Small bowel loops measure up to 2.2 cm. The lungs are clear without acute consolidative opacity. No pleural effusion or pneumothorax. The cardiac and mediastinal contours are normal. Cholecystectomy changes are present. Visualized osseous structures are intact. IMPRESSION: 1. Nonobstructed bowel gas pattern. 2. No acute cardiopulmonary findings. Electronically signed by: Carmela Silveira MD (03/24/2020 8:25 PM) [facility] DICTATED AND SIGNED BY: CARMELA SILVEIRA MD DATE: 03/24/202024 CC: STEPHANE GUTIERREZ MD; JAIME BARAJAS MD ~ Course & Med Decision Making: Course & Med Decision Making Pertinent Labs and Imaging studies reviewed. (See chart for details) Patient stay on a clear fluid diet only. No solids. No milk products. Bowel rest. Take Tylenol ibuprofen for pain. Follow-up primary care . Return if any concerns. Must have reexam if no improvement of symptoms. . Practice COVID-19 precautions Impression: 1. Abdomen pain 2. Viral syndrome 3. Constipation [] Dragon Disclaimer: Dragon Disclaimer: This electronic medical record was generated, in whole or in part, using a voice recognition dictation system. Departure Departure: Disposition: 01 HOME/RESIDENCE PRIOR TO ADM Condition: STABLE Referrals: STEPHANE GUTIERREZ MD (PCP) Dragon Disclaimer This chart was dictated in whole or in part using Voice Recognition software in a busy, high-work load, and often noisy Emergency Department environment. It may contain unintended and wholly unrecognized errors or omissions. Dragon Disclaimer This chart was dictated in whole or in part using Voice Recognition software in a busy, high-work load, and often noisy Emergency Department environment. It may contain unintended and wholly unrecognized errors or omissions. JAIME BARAJAS MD Mar 24, 2020 18:12
[2020-03-24] MEDS ORDERED: FAMOTIDINE 20 MG/2 ML VIAL IVP ONE (18:30)
[2020-03-24] MEDS ORDERED: ONDANSETRON PF 4 MG/2 ML VIAL. IVP ONE (18:30)
[2020-03-24] MEDS ORDERED: IV RINGERS SOLUTION,LACTATED 1,000 ML IV SCH (18:30)
[2020-03-24 18:43] LABS: BASO # 0.1 x10^3/uL (0.0-0.2); BASO % 1 % (0-3); EOS # 0.1 x10^3/uL (0.0-0.7); EOS % 2 % (0-3); HEMATOCRIT 39.6 % (36.0-47.0); HEMOGLOBIN 13.1 g/dL (12.0-15.5); LYMPH # 2.2 x10^3/uL (1.0-4.8); LYMPH % 29 % (24-48); MEAN CORPUSCULAR HEMOGLOBIN 28 pg (25-35); MEAN CORPUSCULAR HGB CONC 33 g/dL (31-37); MEAN CORPUSCULAR VOLUME 85 fL (79-100); MONO # 0.5 x10^3/uL (0.0-1.1); MONO % 6 % (0-9); NEUT # 4.7 x10^3uL (1.8-7.7); NEUT % 62 % (31-73); PLATELET COUNT 291 x10^3/uL (140-400); RED BLOOD COUNT 4.69 x10^6/uL (3.50-5.40); RED CELL DISTRIBUTION WIDTH 14.6 % (11.5-14.5); WHITE BLOOD COUNT 7.6 x10^3/uL (4.0-11.0)
[2020-03-24 18:47] LABS: AMPHETAMINE/METHAMPHETAMINE NEG (NEG); BARBITURATES NEG (NEG); BENZODIAZEPINES NEG (NEG); CANNABINOIDS NEG (NEG); COCAINE NEG (NEG); METHADONE NEG (NEG); OPIATES NEG (NEG); PHENCYCLIDINE NEG (NEG)
[2020-03-24 18:56] LABS: BILIRUBIN,URINE NEG (NEG); CLARITY,URINE CLEAR; COLOR,URINE YELLOW; GLUCOSE,URINE NEG (NEG); NITRITE,URINE NEG (NEG); UROBILINOGEN,URINE 0.2 mg/dL (0.2 mg/dL)
[2020-03-24 18:57] LABS: BACTERIA,URINE 0 /HPF (0-FEW); RBC,URINE OCC /HPF (0-2); SQUAMOUS EPITHELIAL CELL,UR FEW /LPF; WBC,URINE OCC /HPF (0-4)
[2020-03-24 18:57] LABS: CALCIUM 9.1 mg/dL (8.5-10.1); CREATININE 0.8 mg/dL (0.6-1.0); GFR 80.3; POTASSIUM 4.1 mmol/L (3.5-5.1)
[2020-03-24] MEDS ORDERED: KETOROLAC 30 MG/ML VIAL. IVP ONE (19:00)
[2020-03-24 19:05] LABS: ALBUMIN 3.4 g/dL (3.4-5.0); DIRECT BILIRUBIN 0.1 mg/dL (0.0-0.2); TOTAL BILIRUBIN 0.4 mg/dL (0.2-1.0); TOTAL PROTEIN 6.7 g/dL (6.4-8.2)
--- NOTE | 2020-03-24 20:28 | RAD ---
Acute Abdominal Series: 03/24/2020 7:48 PM Reason for study: Pain. Comparison studies: None. Technique: Frontal view of the chest was obtained along with supine and upright views of the abdomen. Findings: Nonobstructive bowel gas pattern. No air fluid levels or free air. No dilated loops of small or large bowel. Small bowel loops measure up to 2.2 cm. The lungs are clear without acute consolidative opacity. No pleural effusion or pneumothorax. The cardiac and mediastinal contours are normal. Cholecystectomy changes are present. Visualized osseous structures are intact. IMPRESSION: 1. Nonobstructed bowel gas pattern. 2. No acute cardiopulmonary findings. Electronically signed by: Ritu Simmons MD (03/24/2020 8:25 PM) [facility]
[2020-03-24 21:31] VITALS: BP 128/69
== END 2020-03-24 22:20 | disposition home or self-care (01) ==
LOC: ER 17:14
DX: B34.9 Viral infection, unspecified (principal); K59.00 Constipation, unspecified; R10.84 Generalized abdominal pain; R19.7 Diarrhea, unspecified; M79.7 Fibromyalgia; K21.9 Gastro-esophageal reflux disease without esophagitis; F41.9 Anxiety disorder, unspecified; F17.200 Nicotine dependence, unspecified, uncomplicated; Z87.440 Personal history of urinary (tract) infections; Z90.49 Acquired absence of other specified parts of digestive tract; Z98.51 Tubal ligation status
CPT/HCPCS: 36415; 74022; 80048; 80076; 80307; 81001; 82550; 83690; 84484; 85025; 85610; 85730; 86705; 86709; 86803; 87340; 96361; 96374; 96375; 99285; J1885; J2405; J3490; J7120

== ENCOUNTER 2020-09-19 18:46 | Emergency (ER) | payer OTHER ==
[~2020-09-19] VITALS: Ht 162.6 cm; Wt 124.5 kg
--- NOTE | 2020-09-19 19:09 | PHYS DOC ---
Past History Past Medical History: Anxiety, Bronchitis, Fibromyalgia, GERD, UTI, Other Past Surgical History: Cholecystectomy, Tubal ligation Smoking: Less than 1pk/day Alcohol Use: None Drug Use: None Adult General Chief Complaint Chief Complaint: HEADACHE HPI HPI Patient is a 39-year-old female who presents with right head numbness. Patient reports this was first noticed approximately 4 days ago after waking up from a nap. Patient reports intermittent right posterior occiput numbness behind her ear. There is no pain, denies any ocular symptoms, no gait abnormalities, no other reportable symptoms at this time. Only potential causes of symptoms involved a box which weighed approximately 5 pounds that hid center of forehead day prior. She did not lose consciousness, no changes in mentation, no nausea or vomiting since that episode. Patient discussed symptoms with her family who were concerned prompting her to come in for evaluation Review of Systems Review of Systems Fourteen body systems of review of systems have been reviewed. See HPI for pertinent positives and negative responses, other nolasco all other systems are negative, non-pertinent or non-contributory Allergies Allergies Allergies Coded Allergies Type Severity Reaction Last Updated Verified No Known Drug Allergies 07/18/18 No Physical Exam Physical Exam Constitutional: Pt is oriented to person, place, and time. Pt appears well- developed and well-nourished. HENT: Head: Normocephalic and atraumatic. Mouth/Throat: Oropharynx is clear and moist. No hematomas or lacerations or abrasions to face or scalp OP clear, no blood, no malocclusion, dentition intact Nares clear, no nasal septal hematoma TMs clear, no hemotympanum Midface stable Eyes: Conjunctivae and EOM are normal. Pupils are equal, round, and reactive to light. Neck: C-spine midline nontender, no step-offs Cardiovascular: Normal rate, regular rhythm and normal heart sounds. Pulmonary/Chest: Effort normal and breath sounds normal. No respiratory distress. No wheezes. CTA bilaterally Abdominal: Soft. Bowel sounds are normal. Pt exhibits no distension. There is no tenderness. Musculoskeletal: No bony tenderness to extremities, no deformities, full ROM extremities Neurological: Pt is alert and oriented to person, place, and time. Moving all extremities willfully, able to wiggle all fingers and toes Alert and oriented x 3 Sensation grossly intact Skin: Skin is warm and dry. No abrasions, no lacerations Psychiatric: Behavior is appropriate for situation Nursing note and vitals reviewed. Current Patient Data Vital Signs Vital Signs Date Time Temp Pulse Resp B/P (MAP) Pulse Ox O2 Delivery O2 Flow Rate FiO2 09/19/20 19:50 147/88 (107) 09/19/20 19:16 98.8 80 16 100 Room Air EKG EKG [] Radiology/Procedures Radiology/Procedures [] Heart Score Risk Factors: Risk Factors: DM, Current or recent (<one month) smoker, HTN, HLP, family history of CAD, obesity. Risk Scores: Risk Factors: DM, Current or recent (<one month) smoker, HTN, HLP, family history of CAD, obesity. Course & Med Decision Making Course & Med Decision Making Well-appearing ambulatory nontoxic patient seen on arrival ABCs nonconcerning Comprehensive history and physical exam obtained, no emergent and/or surgical findings present I discussed limited utility in further diagnostic work-up such as laboratory analysis or imaging, patient agreed I discussed most likely diagnosis of anxiety versus potential polypharmacy causing paresthesias? I have no good explanation for patient's symptomology but at present, she is well-appearing without any concerning signs or symptoms that indicate further work-up or admission I discussed role of close outpatient follow-up with PCP in upcoming 72 hours, strict return precautions were discussed with good understanding by patient, all questions and concerns addressed prior to ER departure in stable condition Dragon Disclaimer Dragon Disclaimer This electronic medical record was generated, in whole or in part, using a voice recognition dictation system. Departure Departure: Impression: Primary Impression: Paresthesia Disposition: 01 DC HOME SELF CARE/HOMELESS Condition: STABLE Referrals: STEPHANE GUTIERREZ MD (PCP) Additional Instructions: As discussed prior to ER departure, please call your primary care physician first thing tomorrow morning to schedule outpatient follow-up in upcoming 1 to 10 days As discussed, I feel you would benefit from comprehensive medication reconciliation. You are on several medications which could be causing numbness/tingling/paresthesias that brought you to our ER today. Any concerning signs or says symptoms arise prior to outpatient follow-up please do not hesitate to come in for reevaluation. It was a pleasure to take care of you and I wish you a speedy recovery DINAH ELKINS DO Sep 19, 2020 19:09
[2020-09-19 19:50] VITALS: BP 147/88
== END 2020-09-19 19:55 | disposition home or self-care (01) ==
LOC: ER 18:46
DX: R20.2 Paresthesia of skin (principal); M79.7 Fibromyalgia; K21.9 Gastro-esophageal reflux disease without esophagitis; F17.200 Nicotine dependence, unspecified, uncomplicated; Z87.440 Personal history of urinary (tract) infections; Z90.49 Acquired absence of other specified parts of digestive tract; Z98.51 Tubal ligation status
CPT/HCPCS: 99281

== ENCOUNTER → 2021-03-23 | Outpatient (CLI) | payer OTHER ==
[2021-03-23 14:21] LABS: ALBUMIN 3.6 g/dL (3.4-5.0); ALBUMIN/GLOBULIN RATIO 1.1 (1.0-1.7); CALCIUM 9.3 mg/dL (8.5-10.1); GFR 61.7; POTASSIUM 4.3 mmol/L (3.5-5.1); TOTAL BILIRUBIN 0.2 mg/dL (0.2-1.0)
[2021-03-23 14:37] LABS: BASO # 0.1 x10^3/uL (0.0-0.2); BASO % 1 % (0-3); EOS # 0.3 x10^3/uL (0.0-0.7); EOS % 3 % (0-3); HEMATOCRIT 39.2 % (36.0-47.0); HEMOGLOBIN 13.3 g/dL (12.0-15.5); LYMPH # 2.4 x10^3/uL (1.0-4.8); LYMPH % 28 % (24-48); MEAN CORPUSCULAR HEMOGLOBIN 29 pg (25-35); MEAN CORPUSCULAR HGB CONC 34 g/dL (31-37); MEAN CORPUSCULAR VOLUME 85 fL (79-100); MONO # 0.6 x10^3/uL (0.0-1.1); MONO % 8 % (0-9); NEUT # 5.1 x10^3uL (1.8-7.7); NEUT % 61 % (31-73); PLATELET COUNT 354 x10^3/uL (140-400); RED BLOOD COUNT 4.62 x10^6/uL (3.50-5.40); RED CELL DISTRIBUTION WIDTH 13.7 % (11.5-14.5); WHITE BLOOD COUNT 8.5 x10^3/uL (4.0-11.0)
[2021-03-24 18:58] LABS: FREE T4 0.94 ng/dL (0.76-1.46); THYROID STIM HORMONE (TSH) 0.527 uIU/mL (0.358-3.740)
== END ==
LOC: LAB 12:15
PROVIDERS: ATTEND Internal Medicine
DX: E55.9 Vitamin D deficiency, unspecified (principal); M32.9 Systemic lupus erythematosus, unspecified; I10 Essential (primary) hypertension
CPT/HCPCS: 36415; 80053; 80061; 82306; 82607; 84439; 84443; 85025

== ENCOUNTER → 2021-09-11 | Outpatient (CLI) | payer OTHER ==
[2021-09-11 14:47] LABS: BARBITURATES NEG (NEG); BENZODIAZEPINES NEG (NEG); CANNABINOIDS NEG (NEG); COCAINE NEG (NEG); METHADONE NEG (NEG); OPIATES NEG (NEG); PHENCYCLIDINE NEG (NEG)
[2021-09-11 14:59] LABS: AMPHETAMINE/METHAMPHETAMINE NEG (NEG)
== END ==
LOC: LAB 13:05
PROVIDERS: ATTEND Internal Medicine
DX: Z79.891 Long term (current) use of opiate analgesic (principal)
CPT/HCPCS: 36415; 80307

== ENCOUNTER → 2021-12-13 | Emergency (ER) | payer OTHER ==
[~2021-12-13] MED LIST changes: -CYCL-331 PO; +CYCL10TA19 PO
== END | disposition left against medical advice (07) ==
LOC: ER 12:14
DX: R07.9 Chest pain, unspecified (principal); R09.81 Nasal congestion; J02.9 Acute pharyngitis, unspecified; R06.02 Shortness of breath; Z53.21 Procedure and treatment not carried out due to patient leaving prior to being seen by health care provider